=== PATIENT | female | born 1965 | race Caucasian/White ===

== ENCOUNTER 2023-12-02 17:09 | Emergency (ER) | payer OTHER, SELFPAY ==
--- NOTE | ~2023-12-02 | XR_ITS ---
EXAMINATION: XR CHEST CLINICAL INFORMATION: Cough, hemoptysis. COMPARISON: None available. TECHNIQUE: 2 views of the chest were obtained. FINDINGS: Normal appearance of the cardiomediastinal silhouette. Mildly increased interstitial markings without consolidation, pleural effusion or pneumothorax. Thoracic spondylosis. No acute osseous findings. Visualized upper abdomen is within normal limits. XR/XR chest 2V IMPRESSION: Mildly increased interstitial markings are indeterminate and could be associated with asthma, bronchitis, reactive airways disease or atypical infections.
--- NOTE | ~2023-12-02 | CT_ITS ---
EXAMINATION: CT ANGIOGRAM OF THE CHEST WITH AND WITHOUT CONTRAST (CT PULMONARY ANGIOGRAM FOR PE) CLINICAL INFORMATION: Reason for Exam hemoptysis COMPARISON: Chest x-ray December 02, 2023 TECHNIQUE: Prior to contrast administration, noncontrast localization images were obtained. Subsequently, multidetector volumetric imaging was performed from the thoracic inlet to below the diaphragms following the administration of 80 mL Omnipaque 350 intravenous contrast. No contrast reaction reported Sagittal, coronal, and MIP oblique sagittal reformatted images were obtained on the CT workstation, uploaded to PACS, and reviewed. This CT examination was performed using dose optimization techniques as appropriate, variously including the following: *Automated exposure control *Adjustment of mA and/or kV according to patient size (this includes techniques or standardized protocols for targeted exams where dose is matched to indication/reason for exam; i.e. extremities or head) *Use of iterative reconstruction technique Total exam dose-length product 280 mGy-cm FINDINGS: QUALITY OF STUDY/CONTRAST BOLUS: Satisfactory. PULMONARY ARTERIES: No pulmonary emboli. THORACIC AORTA: No aneurysm. There are vascular wall calcifications of the aorta. LUNG: Centrilobular emphysematous change of lungs. No acute airspace disease. Central bronchial airways are open. No suspicious lung nodules. PLEURA: No pleural effusion or pneumothorax. MEDIASTINUM: Normal heart size. No pericardial effusion. No hilar or mediastinal lymphadenopathy. No evidence of septal bowing or right heart strain. CORONARY ARTERY CALCIFICATION: None visualized on this study. CHEST WALL/AXILLA: No axillary or internal mammary lymphadenopathy. OSSEOUS STRUCTURES: No acute or suspicious osseous abnormality. UPPER ABDOMEN: Unremarkable. No reflux of contrast into the hepatic veins to suggest elevated right heart pressures. CT/CT angio chest PE protocol IMPRESSION: 1. No evidence of pulmonary embolism. 2. Centrilobular emphysematous change of lungs. No acute airspace disease. VTE: negative.
--- NOTE | 2023-12-02 17:27 | ED_ITS ---
HPI - General Adult General Chief complaint: General Medical Stated complaint: Spitting up blood Time Seen by Provider: 12/02/23 19:36 Source: patient Mode of arrival: ambulatory Limitations: no limitations History of Present Illness HPI narrative: This is a 57yof who presents for evaluation of hemoptysis. 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 She states she used to smoker, but no longer. She states she has a strong family history of cancer. She states coughing over the last several days. She states associated through an irritation and nasal irritation. She states no sore throat or odynophagia. She states that she saw her ENT earlier this week and had a scope which she reports revealed no abnormality. She states no fever, chills or myalgias. She states coughing up blood today. She states no nausea, vomiting or hematemesis. She states no chest pain or dyspnea. She states no epistaxis. She states no trauma. She states no alcohol use or NSAID use. She states no abdominal pain. She states no melena or hematochezia. Related Data Previous Rx's ?Medication ?Instructions ?Recorded amoxicillin 875 mg-potassium 1 tab PO BID 5 days #10 tabs 12/02/23 clavulanate 125 mg tablet azithromycin 250 mg tablet 250 mg PO DAILY 5 days #5 tabs 12/02/23 Allergies Allergy/AdvReac Type Severity Reaction Status Date / Time cat dander [cats] Allergy Unknown Verified 12/02/23 17:29 mite-Dermatophagoides Allergy Unknown Verified 12/02/23 17:29 farinae, keila [dust mite - [place]] mold Allergy Unknown Verified 12/02/23 17:29 Review of Systems 2 Review of Systems: ROS as per HPI PMF Social History Social History Smoked in Last 30 Days: No Use of substances other than those prescribed or required for medical reasons: Yes Substance Use Type: Marijuana Advance Directives: No Advance Directives Information Provided: No Do you have a plan to hurt others: No Plan Patient : No Physical Exam ED Vital Signs: Vital Signs - 24 hr 12/02/23 17:29 Temperature 97.9 F Pulse Rate 81 Respiratory Rate 18 Blood Pressure 161/50 H Pulse Oximetry 99 Oxygen Delivery Method Room Air BMI result Body Mass Index 31.3 Gen: NAD, AOx3 HEENT: NCAT, EOMI, normal conjunctiva, nasal mucosa pink without stigmata of recent bleed or active epistaxis, oropharynx clear without stigmata of recent bleed or evidence of active bleeding CV: RRR Pulm: CTAB, no increased work of breathing GI: Soft, NTND, no rebound, guarding or rigidity Neuro: Grossly non focal Course Course Course Narrative: RME performed by Ying Sierra PA-C. Patient is a 57 year old assigned female at presenting to the emergency department with coughing up blood. Patient states she has been coughing up blood lately which is new for her. 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 Labs, imaging, and swabs ordered. Patient placed back in the waiting room pending room availability and results. Medications Administered Discontinued Medications Generic Name Dose Route Start Last Admin Trade Name Freq PRN Reason Stop Dose Admin Iohexol 65 ml 12/02/23 20:38 12/02/23 20:38 Iohexol 350 Mg/Ml 100 Ml Infus..Btl IV 12/02/23 20:39 65 ml ONCE ONE Administration Medical Decision Making Medical Decision Making MDM Narrative: Differential diagnosis includes, but is not limited to bronchitis, pneumonia, viral syndrome, pulmonary embolism, thrombocytopenia Considered epistaxis, but patient has no clinical history to suggest this is a etiology of her hemoptysis. So this is thought to be much less likely. Upper GI bleeding, but has no clinical history suggests this and reports no overuse aspirin/NSAIDs or alcohol use. So this is thought to be much less likely. Patient is afebrile and hemodynamically stable on room air. Exam is benign and reassuring. I reviewed and interpreted labs, which are noncontributory. Patient is negative for COVID-19, influenza and RSV. X-ray demonstrates mildly increased interstitial markings that are indeterminate and may be secondary to asthma come guidance, reactive airway disease or atypical infection. Given patient's report of recent cough these findings may be explained by atypical. CT imaging as below demonstrates no evidence of pulmonary embolism and otherwise demonstrates emphysema of the lungs. Considered therapy with corticosteroids, but patient has no wheezing to suggest bronchospasm/COPD exacerbation. This, patient is not provided any corticosteroids. On re-examination, patient is well-appearing and in no acute distress. ?There is no indication for further emergent evaluation in this otherwise well-appearing patient as above. ?Patient is provided written and verbal instructions, educational materials, recommendations for outpatient follow-up, prescription for 5- day course of antibiotics, strict return precautions and teach back is performed. ?Patient states understanding and agreement with plan of care. ?Patient is discharged home in stable and improved condition. Admission/Observation Consideration of admission/observation: Escalation of care including admission/observation considered Lab Data MDM Lab Attestation statement: I reviewed the patient's lab results. 12/02/23 18:22 12/02/23 18:22 Labs: Lab Results 12/02/23 Range/Units 18:22 WBC 8.1 (4.8-10.8) X10*3/uL RBC 4.10 L (4.20-5.50) X10*6/uL Hgb 12.8 (12.0-16.0) g/dl Hct 38.2 (37.0-47.0) % MCV 93.2 (80.0-98.0) fL MCH 31.2 (27.0-33.0) pg MCHC 33.5 (31.0-35.0) g/dl RDW 13.7 (11.0-16.0) % Plt Count 265 (160-400) X10*3/uL MPV 10.6 (9.4-12.3) fL Immature Gran % (Auto) 1.0 H (0.0-0.4) % Neut % (Auto) 52.0 (45-73) % Lymph % (Auto) 38.1 (20-40) % [place] % (Auto) 6.3 (2-11) % Eos % (Auto) 1.9 (0-4) % Baso % (Auto) 0.7 (0-2) % Lymph # (Auto) 3.1 (1.2-4.9) X10*3/uL [place] # (Auto) 0.5 (0.1-1.2) X10*3/uL Eos # (Auto) 0.2 (0.0-0.4) X10*3/uL Baso # (Auto) 0.1 (0.0-0.2) X10*3/uL Abs Immat Gran (auto) 0.08 H (0.00-0.03) X10*3/uL Absolute Neuts (auto) 4.2 (2.0-8.3) x10*3/uL Absolute Nucleated RBC 0.000 (0.0-0.012) X10*3/uL Nucleated RBC % (auto) 0.0 (0.0-0.2) /100WBC PT 11.6 (11.1-13.3) SEC INR 1.0 (0.9-1.1) APTT 32.9 (26.0-36.8) SEC Sodium 140 (135-145) mmol/L Potassium 4.0 (3.3-5.1) mmol/L Chloride 109 H (96-108) mmol/L Carbon Dioxide 21 L (22-29) mmol/L Anion Gap 14 (12-20) BUN 12 (9-16) mg/dL Creatinine 0.73 (0.5-1.4) mg/dL Estim Creat Clear Calc 80.7 Estimated GFR > 60 Random Glucose 106 (60-115) mg/dL Calcium 9.7 (8.4-10.2) mg/dL Magnesium 2.0 (1.6-2.6) mg/dL Total Bilirubin 0.5 (0.0-1.0) mg/dL AST 19 (5-31) U/L ALT 9 (0-31) U/L Alkaline Phosphatase 76 (39-117) U/L Total Protein 7.8 (6.5-8.0) g/dL Albumin 4.6 (3.5-5.0) g/dL Influenza Type A (PCR) NEGATIVE (Negative) Influenza Type B (PCR) NEGATIVE (Negative) RSV RNA Qual (PCR) NEGATIVE (Negative) SARS-CoV-2 RNA (RT-PCR) NEGATIVE (Negative) S. pyogenes GrpA JADA Negative (Negative) Radiology Impression Discussion of test interpretation with radiology: I have reviewed the radiologist's reading. Radiologist Impression: MPRESSION: Mildly increased interstitial markings are indeterminate and could be associated with asthma, bronchitis, reactive airways disease or atypical infections. Dictated By: Nubia Perez Signed By: <Electronically signed by Nubia Perez in [facility]> 12/02/23 8026 MPRESSION: 1. No evidence of pulmonary embolism. 2. Centrilobular emphysematous change of lungs. No acute airspace disease. VTE: negative. Dictated By: Tereso Ramos MD Signed By: <Electronically signed by Tereso Ramos MD in [facility]> 12/02/23 2100 Discharge Plan Discharge Clinical Impression: Cough with hemoptysis, Pneumonia Patient Disposition: Home, Self-Care Instructions: Hemoptysis (ED) Additional Instructions: You were seen and evaluated in the emergency room. Your vital signs were normal and he did not have fever. ? Your blood work was normal. Your chest x-ray showed findings that were suggestive of a pneumonia. You were given your first dose of antibiotics here in the ED. You are given a prescription for antibiotics. Please take your next dose tomorrow morning December 03, 2023. Please take your antibiotics as prescribed and until completed. The CAT scan of your chest did not show any evidence of blood clots or masses. Please follow-up with your primary care doctor in the next 5-7 days. ? Please return to the emergency room if you develop any worsening symptoms including, but not limited to fever, chest pain or difficulty breathing. ? Prescriptions: New amoxicillin-pot clavulanate 875-125 mg tablet 1 tab PO BID 5 Days Qty: 10 0RF azithromycin 250 mg tablet 250 mg PO DAILY 5 Days Qty: 5 0RF Print Language: Swedish
[2023-12-02 17:29] VITALS: BP 161/50; PULSE 81; RESP 18; TEMP 36.6; O2SAT 99; BMI 31.3
[2023-12-02 18:32] LABS: MANUAL DIFF FLAG NO
[2023-12-02 18:44] LABS: Prothrombin Time 11.6 SEC (11.1-13.3)
[2023-12-02 18:47] LABS: Partial Thromboplastin Time 32.9 SEC (26.0-36.8)
[2023-12-02 18:48] LABS: Basophils Absolute Auto 0.1 X10*3/uL (0.0-0.2); Basophils Percent Auto 0.7 % (0-2); Eosinophils Absolute Auto 0.2 X10*3/uL (0.0-0.4); Eosinophils Percent Auto 1.9 % (0-4); Hematocrit 38.2 % (37.0-47.0); Hemoglobin 12.8 g/dl (12.0-16.0); Imm Gran Abs Auto 0.08 X10*3/uL (0.00-0.03); Lymphocytes Absolute Auto 3.1 X10*3/uL (1.2-4.9); Lymphocytes Percent Auto 38.1 % (20-40); Mean Corpuscular HGB Conc 33.5 g/dl (31.0-35.0); Mean Corpuscular Hemoglobin 31.2 pg (27.0-33.0); Mean Corpuscular Volume 93.2 fL (80.0-98.0); Mean Platelet Volume 10.6 fL (9.4-12.3); Monocytes Absolute Auto 0.5 X10*3/uL (0.1-1.2); Monocytes Percent Auto 6.3 % (2-11); Neutrophils Absolute Auto 4.2 x10*3/uL (2.0-8.3); Platelet Count 265 X10*3/uL (160-400); Red Cell Distribution Width 13.7 % (11.0-16.0); White Blood Count 8.1 X10*3/uL (4.8-10.8)
[2023-12-02 18:54] LABS: Alanine Aminotransferase 9 U/L (0-31); Albumin Level 4.6 g/dL (3.5-5.0); Alkaline Phosphatase 76 U/L (39-117); Anion Gap 14 (12-20); Aspartate Amino Transferase 19 U/L (5-31); Bilirubin Total 0.5 mg/dL (0.0-1.0); Blood Urea Nitrogen 12 mg/dL (9-16); Calcium 9.7 mg/dL (8.4-10.2); Carbon Dioxide 21 mmol/L (22-29); Chloride 109 mmol/L (96-108); Creatinine Clr Calc Pharmacy 80.7; Estimated Glomerular Filt Rate > 60; Glucose Random 106 mg/dL (60-115); IDNOW Serial# 08D9AD1C; Sodium 140 mmol/L (135-145); Strep A Nucleic Acid Negative (Negative); Total Protein 7.8 g/dL (6.5-8.0)
[2023-12-02 19:21] LABS: Influenza A PCR NEGATIVE (Negative); Influenza B PCR NEGATIVE (Negative); Resp Syncy Virus RNA Qual PCR NEGATIVE (Negative); SARS COV2 PCR INHOUSE NEGATIVE (Negative)
--- NOTE | 2023-12-02 20:01 | PC.NURSE ---
iv access obtained at this time, 20G placed in right AC.
[2023-12-02] MEDS: iohexoL 350 MG/ML 100 ML INFUS..BTL 65 ML IV (20:38)
[2023-12-02] MEDS: Azithromycin 500 MG TABLET PO (21:16)
[2023-12-02] MEDS: Amoxicillin/Potassium Clav 875 MG TABLET PO (21:16)
[2023-12-02 21:20] VITALS: BP 154/68; PULSE 68; RESP 15; TEMP 37.2; O2SAT 98
[2023-12-02 21:21] VITALS: BP 154/68; PULSE 68; RESP 15; TEMP 37.2; O2SAT 98
== END 2023-12-02 21:21 | disposition home or self-care (01) ==
PROVIDERS: Physician Assistant Medical; Emergency Provider Emergency Medicine
DX: J18.9 Pneumonia, unspecified organism (principal); R04.2 Hemoptysis; R05.9 Cough, unspecified; Z79.899 Other long term (current) drug therapy; Z03.818 Encounter for observation for suspected exposure to other biological agents ruled out
CPT/HCPCS: 0241U; 71046; 71275; 80053; 83735; 85025; 85610; 85730; 87651; 99284; Q9967